=== PATIENT | male | born 1945 | race Caucasian/White ===

== ENCOUNTER → 2017-09-03 | Outpatient (CLI) | payer MEDICARE ==
[~2017-09-03] MED LIST: /FEXO60TA OR; /GLYB5TA OR; ALLE25TA PO; ASPI1TAB PO; FERR240T PO; GLUC850T OR; HYDR25TAB PO; LISI10TA4 PO; NEUR300C OR; OMEP20TA7 OR; PRAV20TA2 PO; SENEKOT OR; TRAM50TA2 OR; VITA100067 PO
[2017-09-03 11:48] LABS: MEAN CORPUSCULAR HEMOGLOBIN 31.5 pg (27.0-33.0); MEAN CORPUSCULAR HGB CONC 34.2 g/dl (32.0-36.5); MEAN CORPUSCULAR VOLUME 92.1 fl (80.0-96.0); PLATELET COUNT, AUTOMATED 287 10^3/uL (150-450); RED CELL DISTRIBUTION WIDTH 12.3 % (11.5-14.5)
--- NOTE | 2017-09-03 12:13 | REP ---
Clinical: Preoperative assessment . Comparison: 05/05/2014 . Technique: PA and lateral. Findings: The mediastinum and cardiac silhouette are normal. The lung curtis are clear and without acute consolidation, effusion, or pneumothorax. The skeletal structures are intact and normal. Impression: 1. No acute cardiopulmonary process. Signed by Maico Cooper MD 09/03/2017 12:05 P
--- NOTE | 2017-09-03 12:18 | ECGEPIP ---
Stationary ECG Study [facility] Test Date: 2017-09-03 Pat Name: NANI CLIFFORD Department: Room: - Gender: M Database Programmer Analyst: DANNI : 1945 Requested By: Racile Garcia Order Number: [id number] Reading MD: Cami Hanson Measurements Intervals [place] Rate: 66 P: 39 OR: 161 QRS: 32 QRSD: 87 T: 62 QT: 376 QTc: 395 Interpretive Statements SINUS RHYTHM LOW VOLTAGE LIMB NO PRIOR Electronically Signed On 09-03-2017 12:18:28 EST by Cami Hanson
[2017-09-03 12:21] LABS: ALBUMIN 3.8 GM/DL (3.2-5.2); ALBUMIN/GLOBULIN RATIO 0.97 (1.00-1.93); BILIRUBIN,TOTAL 0.8 MG/DL (0.2-1.0); CALCIUM LEVEL 9.5 MG/DL (8.8-10.2); CREATININE FOR GFR 1.31 MG/DL (0.70-1.30); GLOMERULAR FILTRATION RATE 57.4 (>42); POTASSIUM SERUM 4.7 MEQ/L (3.5-5.1); TOTAL PROTEIN 7.7 GM/DL (6.4-8.2)
[2017-09-03 12:38] LABS: ERYTHROCYTE SEDIMENTATION RATE 19 mm/hr (0-20)
[2017-09-03 13:16] LABS: INR 1.05
== END ==
LOC: M ADMPAT 10:13
PROVIDERS: ATTEND Orthopaedic Surgery
DX: Z01.818 Encounter for other preprocedural examination (principal); M19.011 Primary osteoarthritis, right shoulder; Z79.01 Long term (current) use of anticoagulants; E11.9 Type 2 diabetes mellitus without complications; I10 Essential (primary) hypertension; K21.9 Gastro-esophageal reflux disease without esophagitis

== ENCOUNTER 2017-09-20 05:44 | Day surgery (SDC) | payer MEDICARE ==
[2017-09-20] MEDS ORDERED: ROPIvacaine 0.5% 30 ML INJECTION (J2795 PER 1MG) (05:45)
[2017-09-20] MEDS: LR 1,000 ML IV ×3 (06:00→11:30)
[2017-09-20] MEDS ORDERED: ROCURONIUM BROMIDE 50 MG/5 ML VIAL As Ordered (06:25)
[2017-09-20] MEDS ORDERED: PROPOFOL 200 MG/20 ML VIAL As Ordered (06:25)
[2017-09-20] MEDS ORDERED: LIDOCAINE 2% INJ 100 MG/5 ML SDV (FOR ANES.) As Ordered (06:25)
[2017-09-20 06:53] LABS: GLUCOSE, FASTING 118 MG/DL (83-110)
[2017-09-20] MEDS: ACETAMINOPHEN 500 MG TAB PO (06:59)
[2017-09-20] MEDS: ceFAZolin 1GM INJ (J0690 PER 500MG) As Ordered (08:10)
[2017-09-20] MEDS: LISINOPRIL 10 MG TAB PO (09:00)
[2017-09-20] MEDS ORDERED: fentaNYL 250 MCG/5 ML INJECTION (J3010) As Ordered (10:03)
[2017-09-20] MEDS ORDERED: GLYCOPYRROLATE INJ 0.2 MG/ML 2 ML VIAL As Ordered ×2 (10:03)
[2017-09-20] MEDS ORDERED: ePHEDrine SULFATE 25 MG/5 ML(5MG/ML) SYRINGE As Ordered (10:03)
[2017-09-20] MEDS ORDERED: MIDAZOLAM INJ 2 MG/2 ML VIAL (J2250) As Ordered (10:03)
[2017-09-20] MEDS ORDERED: PHENYLephrine HCL 500 MCG/5 ML (100MCG/ML) SYRINGE (J2370) As Ordered (10:03)
[2017-09-20] MEDS ORDERED: NEOSTIGMINE 10 MG/10 ML VIAL (J2710) As Ordered (10:03)
[2017-09-20] MEDS ORDERED: ONDANSETRON 4MG/2ML VIAL (J2405) As Ordered (10:04)
[2017-09-20] MEDS ORDERED: dexameTHASONE 4 MG/ML 1ML VIAL (J1100) As Ordered (10:04)
[2017-09-20] MEDS: EPINEPHrine INJ 1 MG/ML 1ML AMP As Ordered (10:30)
[2017-09-20] MEDS: VANCOMYCIN HCL 500 MG/10 ML VIAL (J3370) As Ordered (10:45)
[2017-09-20] MEDS ORDERED: HYDROmorphone HCL 2 MG/ML 1ML VIAL (J1170) As Ordered (10:58)
[2017-09-20] MEDS ORDERED: fentaNYL 100 MCG/2 ML INJECTION (J3010) As Ordered (11:16)
[2017-09-20] MEDS: fentaNYL 100 MCG/2 ML INJECTION (J3010) IV (11:24)
[2017-09-20] MEDS ORDERED: fentaNYL 100 MCG/2 ML INJECTION (J3010) IV (11:30)
[2017-09-20] MEDS: NS 1,000 ML IV ×2 (11:30→23:56)
[2017-09-20] MEDS ORDERED: MORPHINE 4 MG/ML 1ML SYRINGE IV (11:30)
[2017-09-20] MEDS ORDERED: ONDANSETRON 4MG/2ML VIAL (J2405) IV (11:30)
[2017-09-20] MEDS ORDERED: NORCO, ANEXSIA 5/325MG TABLET (HYDROcodone/ACETAMINOPHEN) PO (11:30)
[2017-09-20] MEDS ORDERED: HYDROmorphone HCL 1 MG/ML SYRINGE (J1170) IV (11:30)
[2017-09-20] MEDS: HumaLOG INSULIN (NovoLOG) PER UNIT SC ×3 (12:00→21:00)
[2017-09-20] MEDS ORDERED: traMADol 50 MG TAB PO (14:15)
[2017-09-20] MEDS: OMEPRAZOLE 20 MG CAP PO (17:23)
[2017-09-20] MEDS: PRAVASTATIN 20 MG TAB PO (21:28)
[2017-09-20] MEDS: GABAPENTIN 300 MG CAP PO (21:28)
[2017-09-20] MEDS: traMADol 50 MG TAB PO (21:29)
[2017-09-21] MEDS: traMADol 50 MG TAB PO (06:19)
[2017-09-21] MEDS: GABAPENTIN 300 MG CAP PO (08:08)
[2017-09-21] MEDS: OMEPRAZOLE 20 MG CAP PO (08:08)
[2017-09-21] MEDS: LISINOPRIL 10 MG TAB PO (08:08)
[2017-09-21] MEDS: HumaLOG INSULIN (NovoLOG) PER UNIT SC (08:08)
== END 2017-09-21 11:10 | disposition home or self-care (01) ==
LOC: M SDC 05:44 → M MS5PR 12:45
DX: M19.011 Primary osteoarthritis, right shoulder (principal); I10 Essential (primary) hypertension; E11.43 Type 2 diabetes mellitus with diabetic autonomic (poly)neuropathy; K21.9 Gastro-esophageal reflux disease without esophagitis; E78.5 Hyperlipidemia, unspecified; M54.9 Dorsalgia, unspecified; G89.29 Other chronic pain; Z79.899 Other long term (current) drug therapy; Z79.82 Long term (current) use of aspirin; Z79.84 Long term (current) use of oral hypoglycemic drugs; Z79.891 Long term (current) use of opiate analgesic; Z87.891 Personal history of nicotine dependence; Z98.1 Arthrodesis status
CPT/HCPCS: 23472

== ENCOUNTER → 2021-04-21 | Outpatient (REF) | payer MEDICARE ==
[~2021-04-21] MED LIST changes: -/GLYB5TA OR; -ALLE25TA PO; -ASPI1TAB PO; +ASPI81TA26 PO; +GLYB1TAB29 OR; +HYDR-3490 PO; -HYDR25TAB PO; +LISI10TA22 PO; -LISI10TA4 PO; +TRAM50TA2 PO; +[UNRECOGNIZED DRUG - CODE] PO
== END ==
LOC: M LAB REF 17:54
PROVIDERS: ATTEND Internal Medicine Nephrology
DX: E83.42 Hypomagnesemia (principal)

== ENCOUNTER → 2021-08-14 | Outpatient (REF) | payer MEDICARE | LOC: M LAB REF 17:15 | PROVIDERS: ATTEND Internal Medicine Nephrology | DX: E83.42 Hypomagnesemia (principal) ==

== ENCOUNTER → 2022-05-25 | Outpatient (CLI) | payer MEDICARE ==
[~2022-05-25] MED LIST changes: +GABA-282 PO; +GLYB5TAB6 PO; +METF-1191 PO; +OMEP1CAP73 PO; +SAW500CA7 PO; +VITA-243 PO; +VITA100093 PO
== END ==
LOC: M LABSMTC 11:35
PROVIDERS: ATTEND Anesthesiology
DX: Z01.818 Encounter for other preprocedural examination (principal); Z11.52 Encounter for screening for COVID-19

== ENCOUNTER 2022-05-27 06:56 | Day surgery (SDC) | payer MEDICARE ==
[~2022-05-27] VITALS: Ht 168.9 cm; Wt 67.6 kg
[~2022-05-27 06:56] MED LIST changes: +BSS IRRIG/VANCO(10MG)/TOBRA(5MG)/EPINEPH(1:1000-0.5CC)500ML BAG-ORONLY IR ONE; +CEFUROXIME 1MG/0.1ML INTRACAMERAL INJ As Ordered ONE; +CYCLOPENTOLATE 1% OPHTH SOLN 2 ML BTL OS SCH; +LIDOCAINE 1% SDV 5ML VIAL As Ordered ONE; +LIDOCAINE 3.5 % 1ML OPHTH TOPICAL GEL OU ONE; +OFLOXACIN 0.3 % (OCUFLOX) OPTH SOL 5ML OS ONE; +PHENYLEPHRINE 2.5% OPHTH SOL 2ML OS SCH; +PHENYLEPHRINE HCL 10 % OPHTH. SOL 5ML OS PRN; +TROPICAMIDE 1% OPHTH SOLN 2ML OS SCH; +acetaZOLAMIDE 500MG ER CAP PO ONE
[2022-05-27 08:21] VITALS: BP 148/73
[2022-05-27 08:50] LABS: BASO % 0.2 % (0.0-1.0); EOS # 0.1 10^3/uL (0.0-0.5); EOS % 3.1 % (0.0-3.0); LYMPH # 1.1 10^3/uL (1.5-5.0); LYMPH % 23.1 % (24.0-44.0); MEAN CORPUSCULAR HEMOGLOBIN 27.5 pg (27.0-33.0); MEAN CORPUSCULAR HGB CONC 30.3 g/dl (32.0-36.5); MEAN CORPUSCULAR VOLUME 90.6 fl (80.0-96.0); MONO # 0.7 10^3/uL (0.0-0.8); MONO % 14.9 % (2.0-8.0); NEUTROPHILS # 2.7 10^3/uL (1.5-8.5); NEUTROPHILS % 58.5 % (36.0-66.0); PLATELET COUNT, AUTOMATED 227 10^3/uL (150-450); RED BLOOD COUNT 1.71 10^6/uL (4.30-6.10); WHITE BLOOD COUNT 4.6 10^3/uL (4.0-10.0)
[2022-05-27 08:55] LABS: HEMATOCRIT 15.5 % (42.0-52.0); HEMOGLOBIN 4.7 g/dl (13.5-17.5)
[2022-05-27 09:26] LABS: CHOLESTEROL RISK RATIO 2.12 (<5)
[2022-05-27 09:27] LABS: CALCIUM LEVEL 9.2 MG/DL (8.8-10.2); CREATININE FOR GFR 1.33 MG/DL (0.70-1.30); GLOMERULAR FILTRATION RATE 55.7 (>42); POTASSIUM SERUM 4.6 MEQ/L (3.5-5.1)
[2022-05-27 09:30] LABS: CK-MB VALUE MASS 2.1 NG/ML (<3.6); MB/CK RELATIVE INDEX 2.73 (< OR =4)
[2022-05-27 13:01] LABS: PERCENT SATURATION 1.7 % (19.7-50.0)
[2022-05-27] MEDS ORDERED: CLOP75TA2 PO (16:56)
[2022-05-27] MEDS ORDERED: ATOR1TAB19 PO (16:56)
== END 2022-05-27 20:55 | disposition home or self-care (01) ==
LOC: M SDC 06:56
PROVIDERS: ATTEND Ophthalmology
DX: H25.12 Age-related nuclear cataract, left eye (principal); Z53.09 Procedure and treatment not carried out because of other contraindication; R06.02 Shortness of breath

== ENCOUNTER 2022-05-27 09:02 | Inpatient (IN) | payer MEDICARE ==
[~2022-05-27] VITALS: Ht 167.6 cm; Wt 62.8 kg
[2022-05-27] VITALS (37 sets, daily range): BP systolic 123–193; BP diastolic 58–90
[~2022-05-27 09:02] MED LIST changes: -BSS IRRIG/VANCO(10MG)/TOBRA(5MG)/EPINEPH(1:1000-0.5CC)500ML BAG-ORONLY IR ONE; -CEFUROXIME 1MG/0.1ML INTRACAMERAL INJ As Ordered ONE; -CYCLOPENTOLATE 1% OPHTH SOLN 2 ML BTL OS SCH; -LIDOCAINE 1% SDV 5ML VIAL As Ordered ONE; -LIDOCAINE 3.5 % 1ML OPHTH TOPICAL GEL OU ONE; -OFLOXACIN 0.3 % (OCUFLOX) OPTH SOL 5ML OS ONE; -PHENYLEPHRINE 2.5% OPHTH SOL 2ML OS SCH; -PHENYLEPHRINE HCL 10 % OPHTH. SOL 5ML OS PRN; -TROPICAMIDE 1% OPHTH SOLN 2ML OS SCH; -acetaZOLAMIDE 500MG ER CAP PO ONE
[2022-05-27] MEDS ORDERED: PANTOPRAZOLE 40MG VIAL IV ONE (09:25)
[2022-05-27 10:08] LABS: INR 1.17; PROTHROMBIN TIME 15.3 SECONDS (12.7-14.5)
[2022-05-27 10:09] LABS: PARTIAL THROMBOPLASTIN TIME 29.5 SECONDS (25.9-37.0)
[2022-05-27] MEDS ORDERED: FUROSEMIDE 20MG/2ML VIAL (J1940) IV ONE (10:30)
[2022-05-27] MEDS ORDERED: DEXTROSE 50% 50 ML SYRINGE IV PRN (11:20)
[2022-05-27] MEDS ORDERED: GLUCOSE 4GM CHEW TABLET PO PRN (11:20)
[2022-05-27] MEDS ORDERED: GLUCAGON INJ 1MG VIAL SC PRN (11:20)
[2022-05-27 12:08] LABS: CK-MB VALUE MASS 1.9 NG/ML (<3.6); MB/CK RELATIVE INDEX 2.87 (< OR =4)
[2022-05-27 12:18] LABS: RSV AMPLIFICATION NEGATIVE (NEGATIVE)
[2022-05-27] MEDS: INSULIN LISPRO (NovoLOG) PER UNIT SC SCH ×3 (12:21→21:00)
[2022-05-27 15:52] LABS: CK-MB VALUE MASS 2.2 NG/ML (<3.6); MB/CK RELATIVE INDEX 3.01 (< OR =4)
[2022-05-27] MEDS ORDERED: ATOR1TAB19 PO (16:56)
[2022-05-27] MEDS ORDERED: CLOP75TA2 PO (16:56)
[2022-05-27] MEDS ORDERED: HOME MED LIST COMPLETE! XX SCH (17:00)
[2022-05-27 19:45] LABS: HEMATOCRIT 26.9 % (42.0-52.0); MEAN CORPUSCULAR HEMOGLOBIN 27.9 pg (27.0-33.0); MEAN CORPUSCULAR HGB CONC 33.1 g/dl (32.0-36.5); MEAN CORPUSCULAR VOLUME 84.3 fl (80.0-96.0); PLATELET COUNT, AUTOMATED 219 10^3/uL (150-450); RED BLOOD COUNT 3.19 10^6/uL (4.30-6.10)
[2022-05-27 20:01] LABS: HEMOGLOBIN 8.9 g/dl (13.5-17.5)
[2022-05-27] MEDS ORDERED: propofoL 200 MG/20 ML VIAL As Ordered ONE ×2 (20:17→20:20)
[2022-05-27] MEDS ORDERED: LIDOCAINE 2% 100MG/5ML SDV (FOR ANES.) As Ordered ONE (20:17)
[2022-05-27] MEDS ORDERED: fentaNYL 100 MCG/2 ML INJECTION As Ordered ONE (20:17)
[2022-05-27] MEDS ORDERED: PHENYLephrine 500MCG 5ML (100MCG/ML) SYRINGE As Ordered ONE (20:20)
[2022-05-27 20:27] LABS: BLOOD UREA NITROGEN 30 MG/DL (7-18); CALCIUM LEVEL 8.6 MG/DL (8.8-10.2); CARBON DIOXIDE LEVEL 28 MEQ/L (21-32); CHLORIDE LEVEL 107 MEQ/L (98-107); CREATININE FOR GFR 1.19 MG/DL (0.70-1.30); GLOMERULAR FILTRATION RATE > 60.0 (>42); GLUCOSE, FASTING 94 MG/DL (70-100); SODIUM LEVEL 140 MEQ/L (136-145)
[2022-05-27] MEDS ORDERED: ONDANSETRON 4MG 2ML VIAL IV PRN (20:30)
[2022-05-27] MEDS ORDERED: PRAVASTATIN 20 MG TAB PO SCH (21:00)
[2022-05-27] MEDS ORDERED: PANTOPRAZOLE 40MG VIAL IV SCH (21:00)
[2022-05-28] VITALS (26 sets, daily range): BP systolic 75–164; BP diastolic 41–72
[2022-05-28 01:29] LABS: HEMOGLOBIN 8.5 g/dl (13.5-17.5)
[2022-05-28 05:55] LABS: BASO % 0.7 % (0.0-1.0); EOS # 0.2 10^3/uL (0.0-0.5); EOS % 4.4 % (0.0-3.0); HEMATOCRIT 25.4 % (42.0-52.0); HEMOGLOBIN 8.4 g/dl (13.5-17.5); LYMPH # 1.2 10^3/uL (1.5-5.0); LYMPH % 20.9 % (24.0-44.0); MEAN CORPUSCULAR HEMOGLOBIN 27.9 pg (27.0-33.0); MEAN CORPUSCULAR HGB CONC 33.1 g/dl (32.0-36.5); MEAN CORPUSCULAR VOLUME 84.4 fl (80.0-96.0); MONO # 0.8 10^3/uL (0.0-0.8); MONO % 14.9 % (2.0-8.0); NEUTROPHILS # 3.2 10^3/uL (1.5-8.5); NEUTROPHILS % 58.6 % (36.0-66.0); PLATELET COUNT, AUTOMATED 214 10^3/uL (150-450); RED BLOOD COUNT 3.01 10^6/uL (4.30-6.10); WHITE BLOOD COUNT 5.5 10^3/uL (4.0-10.0)
[2022-05-28 06:26] LABS: BLOOD UREA NITROGEN 23 MG/DL (7-18); CALCIUM LEVEL 8.2 MG/DL (8.8-10.2); CARBON DIOXIDE LEVEL 27 MEQ/L (21-32); CHLORIDE LEVEL 109 MEQ/L (98-107); CREATININE FOR GFR 1.18 MG/DL (0.70-1.30); GLOMERULAR FILTRATION RATE > 60.0 (>42); GLUCOSE, FASTING 72 MG/DL (70-100); MAGNESIUM LEVEL 1.8 MG/DL (1.8-2.4); POTASSIUM SERUM 3.2 MEQ/L (3.5-5.1); SODIUM LEVEL 140 MEQ/L (136-145)
[2022-05-28] MEDS ORDERED: POTASSIUM CHLORIDE 10MEQ SR TABLET PO ONE ×2 (07:00→08:00)
[2022-05-28] MEDS: INSULIN LISPRO (NovoLOG) PER UNIT SC SCH ×4 (07:30→20:05)
[2022-05-28] MEDS: PANTOPRAZOLE 40MG TAB (PROTONIX) PO SCH (08:50)
[2022-05-28] MEDS ORDERED: GABAPENTIN 300 MG CAP PO SCH (09:00)
[2022-05-28 12:23] LABS: HEMATOCRIT 26.7 % (42.0-52.0); HEMOGLOBIN 8.7 g/dl (13.5-17.5)
[2022-05-28] MEDS ORDERED: SODIUM CHLORIDE 0.9% 1000ML IV STA (15:15)
[2022-05-28] MEDS ORDERED: NS 1,000 ML IV ONE (15:30)
[2022-05-28] MEDS: ATORVASTATIN 10 MG TAB PO SCH (18:22)
[2022-05-28] MEDS: VITAMIN D 1,000 INTERNATIONAL UNITS TABLET PO SCH (18:22)
[2022-05-28] MEDS: ASCORBIC ACID 500 MG TAB PO SCH (18:22)
[2022-05-28 20:12] LABS: HEMATOCRIT 28.3 % (42.0-52.0); HEMOGLOBIN 9.4 g/dl (13.5-17.5)
[2022-05-29] VITALS (9 sets, daily range): BP systolic 100–147; BP diastolic 50–70
[2022-05-29 00:45] LABS: HEMATOCRIT 28.2 % (42.0-52.0); HEMOGLOBIN 9.3 g/dl (13.5-17.5)
[2022-05-29 04:24] LABS: BASO # 0.1 10^3/uL (0.0-0.2); BASO % 0.7 % (0.0-1.0); EOS # 0.3 10^3/uL (0.0-0.5); EOS % 4.8 % (0.0-3.0); LYMPH # 1.4 10^3/uL (1.5-5.0); LYMPH % 19.8 % (24.0-44.0); MEAN CORPUSCULAR HGB CONC 33.3 g/dl (32.0-36.5); MONO % 14.3 % (2.0-8.0); NEUTROPHILS # 4.2 10^3/uL (1.5-8.5); NEUTROPHILS % 59.8 % (36.0-66.0); PLATELET COUNT, AUTOMATED 220 10^3/uL (150-450); RED BLOOD COUNT 3.57 10^6/uL (4.30-6.10); WHITE BLOOD COUNT 7.1 10^3/uL (4.0-10.0)
[2022-05-29 05:07] LABS: BLOOD UREA NITROGEN 24 MG/DL (7-18); CALCIUM LEVEL 8.6 MG/DL (8.8-10.2); CARBON DIOXIDE LEVEL 26 MEQ/L (21-32); CHLORIDE LEVEL 110 MEQ/L (98-107); CREATININE FOR GFR 1.16 MG/DL (0.70-1.30); GLOMERULAR FILTRATION RATE > 60.0 (>42); GLUCOSE, FASTING 94 MG/DL (70-100); MAGNESIUM LEVEL 2.1 MG/DL (1.8-2.4); POTASSIUM SERUM 3.9 MEQ/L (3.5-5.1); SODIUM LEVEL 141 MEQ/L (136-145)
[2022-05-29] MEDS: INSULIN LISPRO (NovoLOG) PER UNIT SC SCH ×2 (07:04→12:37)
[2022-05-29] MEDS: PANTOPRAZOLE 40MG TAB (PROTONIX) PO SCH (08:24)
[2022-05-29] MEDS: ASCORBIC ACID 500 MG TAB PO SCH (08:24)
[2022-05-29] MEDS: VITAMIN D 1,000 INTERNATIONAL UNITS TABLET PO SCH (08:24)
[2022-05-29] MEDS: ATORVASTATIN 10 MG TAB PO SCH (08:24)
[2022-05-29] MEDS ORDERED: GABAPENTIN 300 MG CAP PO SCH (09:00)
[2022-05-29] MEDS ORDERED: ECOT81TA5 PO (10:43)
[2022-05-29] MEDS ORDERED: PANT40TA29 PO ×3 (10:43→14:44)
[2022-05-29 12:35] LABS: HEMATOCRIT 31.2 % (42.0-52.0); HEMOGLOBIN 10.2 g/dl (13.5-17.5)
[2022-05-31 20:42] LABS: WHITE BLOOD COUNT 5.2 10^3/uL (4.0-10.0)
== END 2022-05-29 14:13 | disposition home or self-care (01) | DRG 813 ==
LOC: M ED 09:02 → M ED INP 11:09 → ENRESERV 13:09 → M ICU 14:04
PROVIDERS: ADMIT Internal Medicine; ATTEND Internal Medicine
PROC: 0DJ08ZZ Inspection of Upper Intestinal Tract, Via Natural or Artificial Opening Endoscopic (ICD-10-PCS; 2022-05-27)
PROC: 30233N1 Transfusion of Nonautologous Red Blood Cells into Peripheral Vein, Percutaneous Approach (ICD-10-PCS; principal; 2022-05-27 16:00)
DX: D68.32 Hemorrhagic disorder due to extrinsic circulating anticoagulants (principal); K92.1 Melena; D62 Acute posthemorrhagic anemia; I12.9 Hypertensive chronic kidney disease with stage 1 through stage 4 chronic kidney disease, or unspecified chronic kidney disease; E11.40 Type 2 diabetes mellitus with diabetic neuropathy, unspecified; N18.30 Chronic kidney disease, stage 3 unspecified; E11.22 Type 2 diabetes mellitus with diabetic chronic kidney disease; K21.9 Gastro-esophageal reflux disease without esophagitis; E78.5 Hyperlipidemia, unspecified; Z86.73 Personal history of transient ischemic attack (TIA), and cerebral infarction without residual deficits; M19.90 Unspecified osteoarthritis, unspecified site; Z79.899 Other long term (current) drug therapy; Z79.82 Long term (current) use of aspirin; Z87.891 Personal history of nicotine dependence; K31.89 Other diseases of stomach and duodenum

== ENCOUNTER 2022-08-02 14:16 | Emergency (ER) | payer MEDICARE ==
[~2022-08-02] VITALS: Ht 167.6 cm; Wt 65.9 kg
[~2022-08-02 14:16] MED LIST changes: +ATOR1TAB19 PO; +CLOP75TA2 PO; +ECOT81TA5 PO; +PANT40TA29 PO
[2022-08-02] MEDS ORDERED: CLOP75TA2 PO (14:25)
[2022-08-02 16:07] LABS: HEMATOCRIT 42.2 % (42.0-52.0); HEMOGLOBIN 13.7 g/dl (13.5-17.5); MEAN CORPUSCULAR HGB CONC 32.5 g/dl (32.0-36.5); MEAN CORPUSCULAR VOLUME 86.3 fl (80.0-96.0); PLATELET COUNT, AUTOMATED 239 10^3/uL (150-450); RED BLOOD COUNT 4.89 10^6/uL (4.30-6.10); WHITE BLOOD COUNT 6.8 10^3/uL (4.0-10.0)
[2022-08-02 16:19] LABS: INR 1.07; PROTHROMBIN TIME 14.1 SECONDS (12.5-14.5)
[2022-08-02 16:20] LABS: PARTIAL THROMBOPLASTIN TIME 27.8 SECONDS (24.8-34.2)
[2022-08-02 16:31] LABS: RSV AMPLIFICATION NEGATIVE (NEGATIVE)
[2022-08-02 16:33] LABS: ALBUMIN 3.9 GM/DL (3.2-5.2); BILIRUBIN,DIRECT 0.3 MG/DL (0.0-0.2); CALCIUM LEVEL 9.4 MG/DL (8.8-10.2); CK-MB VALUE MASS 5.5 NG/ML (<3.6); CREATININE FOR GFR 1.38 MG/DL (0.70-1.30); GLOMERULAR FILTRATION RATE 53.3 (>42); MB/CK RELATIVE INDEX 2.28 (< OR =4); POTASSIUM SERUM 3.8 MEQ/L (3.5-5.1); TOTAL PROTEIN 7.4 GM/DL (6.4-8.2)
[2022-08-02 19:30] VITALS: BP 182/99
[2022-08-02 20:10] LABS: HEMATOCRIT 41.8 % (42.0-52.0); HEMOGLOBIN 13.6 g/dl (13.5-17.5); MEAN CORPUSCULAR HEMOGLOBIN 28.1 pg (27.0-33.0); MEAN CORPUSCULAR HGB CONC 32.5 g/dl (32.0-36.5); MEAN CORPUSCULAR VOLUME 86.4 fl (80.0-96.0); PLATELET COUNT, AUTOMATED 246 10^3/uL (150-450); RED BLOOD COUNT 4.84 10^6/uL (4.30-6.10); WHITE BLOOD COUNT 7.3 10^3/uL (4.0-10.0)
== END 2022-08-02 20:54 | disposition home or self-care (01) ==
LOC: M ED 14:16
DX: K92.1 Melena (principal); E11.9 Type 2 diabetes mellitus without complications; I10 Essential (primary) hypertension; K21.9 Gastro-esophageal reflux disease without esophagitis; Z86.73 Personal history of transient ischemic attack (TIA), and cerebral infarction without residual deficits; Z79.4 Long term (current) use of insulin; Z79.811 Long term (current) use of aromatase inhibitors; Z79.899 Other long term (current) drug therapy

== ENCOUNTER → 2022-10-14 | Outpatient (CLI) | payer MEDICARE | LOC: M LABSMTC 09:22 | PROVIDERS: ATTEND Anesthesiology | DX: Z01.812 Encounter for preprocedural laboratory examination (principal); Z11.52 Encounter for screening for COVID-19 ==

== ENCOUNTER 2022-10-19 11:09 | Day surgery (SDC) | payer MEDICARE ==
[~2022-10-19] VITALS: Ht 167.6 cm; Wt 68.7 kg
[~2022-10-19 11:09] MED LIST changes: +ACETYLCHOLINE OPHTH SOLN 1% 2ML (MIOCHOL-E) As Ordered ONE; +BSS IRRIG/VANCO(10MG)/TOBRA(5MG)/EPINEPH(1:1000-0.5CC)500ML BAG-ORONLY IR ONE; +CEFUROXIME 1MG/0.1ML INTRACAMERAL INJ As Ordered ONE; +LIDOCAINE 1% SDV 5ML VIAL As Ordered ONE; +LIDOCAINE 3.5 % 1ML OPHTH TOPICAL GEL OU ONE; +MIDAZOLAM INJ 2MG/2ML VIAL As Ordered ONE; +OFLOXACIN 0.3 % (OCUFLOX) OPTH SOL 5ML OS ONE; +PHENYLEPHRINE 10% OPHTH SOL 5ML OS PRN; +fentaNYL 100 MCG/2 ML INJECTION As Ordered ONE
[2022-10-19] MEDS: CYCLOPENTOLATE 1% OPHTH SOLN 2ML BTL OS SCH ×3 (11:31→11:44)
[2022-10-19] MEDS: PHENYLEPHRINE 2.5% OPHTH SOL 2ML OS SCH ×3 (11:32→11:44)
[2022-10-19] MEDS: TROPICAMIDE 1% OPHTH SOLN 15ML OS SCH ×2 (11:43→11:44)
[2022-10-19 12:18] VITALS: BP 172/86
== END 2022-10-19 12:36 | disposition home or self-care (01) ==
LOC: M SDC 11:09
PROVIDERS: ATTEND Ophthalmology
DX: H25.12 Age-related nuclear cataract, left eye (principal); I10 Essential (primary) hypertension; D64.9 Anemia, unspecified; K21.9 Gastro-esophageal reflux disease without esophagitis; Z79.899 Other long term (current) drug therapy
CPT/HCPCS: 66984; V2632

== ENCOUNTER → 2023-09-17 | Outpatient (CLI) | payer OTHER ==
[~2023-09-17] MED LIST changes: -ACETYLCHOLINE OPHTH SOLN 1% 2ML (MIOCHOL-E) As Ordered ONE; -BSS IRRIG/VANCO(10MG)/TOBRA(5MG)/EPINEPH(1:1000-0.5CC)500ML BAG-ORONLY IR ONE; -CEFUROXIME 1MG/0.1ML INTRACAMERAL INJ As Ordered ONE; -LIDOCAINE 1% SDV 5ML VIAL As Ordered ONE; -LIDOCAINE 3.5 % 1ML OPHTH TOPICAL GEL OU ONE; +LOSA50TA28 PO; -MIDAZOLAM INJ 2MG/2ML VIAL As Ordered ONE; -OFLOXACIN 0.3 % (OCUFLOX) OPTH SOL 5ML OS ONE; -PHENYLEPHRINE 10% OPHTH SOL 5ML OS PRN; -fentaNYL 100 MCG/2 ML INJECTION As Ordered ONE
== END ==
LOC: M ONCR 14:02
PROVIDERS: ATTEND General Practice
DX: C61 Malignant neoplasm of prostate (principal); R97.20 Elevated prostate specific antigen [PSA]; R35.1 Nocturia; R39.12 Poor urinary stream; Z71.2 Person consulting for explanation of examination or test findings; J30.2 Other seasonal allergic rhinitis; Z79.02 Long term (current) use of antithrombotics/antiplatelets; Z79.82 Long term (current) use of aspirin; Z79.84 Long term (current) use of oral hypoglycemic drugs; Z79.891 Long term (current) use of opiate analgesic; Z79.899 Other long term (current) drug therapy; Z87.891 Personal history of nicotine dependence

== ENCOUNTER → 2023-12-17 | Outpatient (CLI) | payer OTHER | LOC: M ONCR 14:13 | PROVIDERS: ATTEND General Practice | DX: C61 Malignant neoplasm of prostate (principal); R97.20 Elevated prostate specific antigen [PSA]; Z71.2 Person consulting for explanation of examination or test findings; Z79.82 Long term (current) use of aspirin; Z79.02 Long term (current) use of antithrombotics/antiplatelets; Z79.84 Long term (current) use of oral hypoglycemic drugs; Z79.899 Other long term (current) drug therapy; J30.2 Other seasonal allergic rhinitis; Z87.891 Personal history of nicotine dependence | CPT/HCPCS: 36415; 84153; G0463 ==

== ENCOUNTER 2023-12-27 13:45 | Outpatient (RCR) | payer OTHER | END 2024-01-02 | LOC: M ONCR 13:45 | PROVIDERS: ATTEND General Practice | DX: Z51.0 Encounter for antineoplastic radiation therapy (principal); C61 Malignant neoplasm of prostate ==

== ENCOUNTER → 2024-02-01 | Outpatient (RCR) | payer OTHER ==
[~2024-02-01] MED LIST changes: +ATOR40TA75 PO; +LORA-622 PO; +METF10004 PO; +OMEP-173 PO; +SEMA3TAB4 PO; +THERTAB52 PO
== END ==
LOC: M ONCR 01-11 12:55
PROVIDERS: ATTEND General Practice
DX: Z51.0 Encounter for antineoplastic radiation therapy (principal); C61 Malignant neoplasm of prostate

== ENCOUNTER 2024-02-17 11:32 | Outpatient (RCR) | payer OTHER ==
[~2024-02-17 11:32] MED LIST changes: +TRIA1CR80 TOP
== END 2024-03-03 ==
LOC: M ONCR 11:32
PROVIDERS: ATTEND General Practice
DX: Z51.0 Encounter for antineoplastic radiation therapy (principal); C61 Malignant neoplasm of prostate

== ENCOUNTER → 2024-05-23 | Outpatient (CLI) | payer OTHER ==
[~2024-05-23] MED LIST changes: +FLOM0.4C39 PO
== END ==
LOC: M ONCR 12:41
PROVIDERS: ATTEND General Practice
DX: C61 Malignant neoplasm of prostate (principal); R97.20 Elevated prostate specific antigen [PSA]; R35.1 Nocturia; R39.15 Urgency of urination; R19.4 Change in bowel habit; Z92.3 Personal history of irradiation; J30.2 Other seasonal allergic rhinitis; Z79.84 Long term (current) use of oral hypoglycemic drugs; Z79.899 Other long term (current) drug therapy
CPT/HCPCS: 36415; 84153; G0463

== ENCOUNTER → 2024-11-23 | Outpatient (CLI) | payer MEDICARE ==
[~2024-11-23] MED LIST changes: +GABA-1172 PO; -GABA-282 PO; +[UNRECOGNIZED DRUG - CODE] PO; -[UNRECOGNIZED DRUG - CODE] PO
== END ==
LOC: M ONCR 13:11
PROVIDERS: ATTEND General Practice
DX: C61 Malignant neoplasm of prostate (principal); Z92.3 Personal history of irradiation; Z87.891 Personal history of nicotine dependence; J30.2 Other seasonal allergic rhinitis; Z79.84 Long term (current) use of oral hypoglycemic drugs; Z79.899 Other long term (current) drug therapy

== ENCOUNTER → 2025-05-23 | Outpatient (CLI) | payer MEDICARE ==
[~2025-05-23] MED LIST changes: -FLOM0.4C39 PO; +LORA-1164 PO; -LORA-622 PO; -PRAV20TA2 PO; +PRAV20TA78 PO; +TAMS-18 PO
== END ==
LOC: M ONCR 12:46
PROVIDERS: ATTEND General Practice
DX: C61 Malignant neoplasm of prostate (principal); K62.5 Hemorrhage of anus and rectum; Z92.3 Personal history of irradiation; Z87.891 Personal history of nicotine dependence; J30.2 Other seasonal allergic rhinitis; Z79.84 Long term (current) use of oral hypoglycemic drugs; Z79.899 Other long term (current) drug therapy